=== PATIENT | male | born 1955 | race Caucasian/White ===

== ENCOUNTER 2022-08-29 06:32 | Day surgery (SDC) | payer MEDICARE, OTHER ==
[2022-08-29] MEDS ORDERED: Sodium Chloride 0.9% 1,000 ML IV SCH (06:45)
[2022-08-29] MEDS ORDERED: Propofol 200 MG/20 ML SDV ONE (07:36)
[2022-08-29] MEDS ORDERED: fentaNYL 50 MCG/ML SDV ONE (07:36)
== END 2022-08-29 09:35 | disposition home or self-care (01) ==
LOC: JP.SDS 06:32
PROVIDERS: ATTEND Surgery
DX: Z12.11 Encounter for screening for malignant neoplasm of colon (principal); I10 Essential (primary) hypertension; Z79.899 Other long term (current) drug therapy; Z95.1 Presence of aortocoronary bypass graft
CPT/HCPCS: J2704; J3010; J7030

== ENCOUNTER 2025-06-14 18:30 | Emergency (ER) | payer MEDICARE, OTHER | END 2025-06-14 20:54 | disposition home or self-care (01) | LOC: JP.ED 18:30 | DX: I10 Essential (primary) hypertension (principal); E78.00 Pure hypercholesterolemia, unspecified; K21.9 Gastro-esophageal reflux disease without esophagitis; Z79.82 Long term (current) use of aspirin; Z79.899 Other long term (current) drug therapy; Z95.1 Presence of aortocoronary bypass graft | CPT/HCPCS: 99283 ==